=== PATIENT | female | born 1965 | race Caucasian/White ===

== ENCOUNTER 2017-02-23 22:00 | Emergency (ER) | payer SELFPAY ==
[~2017-02-23] VITALS: Ht 154.9 cm; Wt 68.2 kg
[~2017-02-23 22:00] MED LIST: NO HOME MEDICATIONS; NORCO 325 MG-51 TAB PO; PEN-VEE K500 MG PO
[2017-02-23 22:16] VITALS: BP 143/61; TEMP 99.1
[2017-02-24] MEDS ORDERED: NAPROSYN500 MG PO (00:09)
[2017-02-24 00:29] VITALS: PULSE 80
== END 2017-02-24 00:32 | disposition home or self-care (01) ==
LOC: COL.ER 22:00
DX: G56.03 Carpal tunnel syndrome, bilateral upper limbs (principal); F17.210 Nicotine dependence, cigarettes, uncomplicated

== ENCOUNTER 2017-03-07 13:58 | Emergency (ER) | payer SELFPAY ==
[~2017-03-07] VITALS: Ht 154.9 cm; Wt 72.7 kg
[~2017-03-07 13:58] MED LIST changes: +NAPROSYN500 MG PO
[2017-03-07 14:01] VITALS: TEMP 98.2
[2017-03-07] MEDS ORDERED: ILOTYCIN5 MG/GM OP (15:30)
[2017-03-07 15:40] VITALS: BP 129/55; PULSE 71
== END 2017-03-07 15:40 | disposition home or self-care (01) ==
LOC: COL.ER 13:58
DX: H10.89 Other conjunctivitis (principal); B99.9 Unspecified infectious disease; F17.210 Nicotine dependence, cigarettes, uncomplicated

== ENCOUNTER 2017-09-27 14:35 | Emergency (ER) | payer SELFPAY ==
[~2017-09-27] VITALS: Ht 154.9 cm; Wt 79.1 kg
[~2017-09-27 14:35] MED LIST changes: +ILOTYCIN5 MG/GM OP
[2017-09-27 14:37] VITALS: BP 136/63; PULSE 95; TEMP 99.4
[2017-09-27] MEDS ORDERED: PEN-VEE K500 MG PO (14:58)
[2017-09-27] MEDS ORDERED: NORCO 325 MG-51 TAB PO (14:58)
== END 2017-09-27 15:07 | disposition home or self-care (01) ==
LOC: COL.ER 14:35
DX: K08.89 Other specified disorders of teeth and supporting structures (principal); F17.210 Nicotine dependence, cigarettes, uncomplicated

== ENCOUNTER 2018-06-08 10:35 | Emergency (ER) | payer SELFPAY ==
[~2018-06-08] VITALS: Ht 154.9 cm; Wt 68.2 kg
[2018-06-08 10:46] VITALS: BP 115/61; TEMP 97
[2018-06-08 12:59] VITALS: PULSE 80
== END 2018-06-08 13:04 | disposition home or self-care (01) ==
LOC: COL.ER 10:35
DX: J03.00 Acute streptococcal tonsillitis, unspecified (principal); J06.9 Acute upper respiratory infection, unspecified; F17.210 Nicotine dependence, cigarettes, uncomplicated
CPT/HCPCS: J0561

== ENCOUNTER 2019-02-13 13:04 | Emergency (ER) | payer SELFPAY ==
[~2019-02-13] VITALS: Ht 154.9 cm; Wt 72.7 kg
[2019-02-13 13:18] VITALS: BP 134/71; TEMP 98.2
[2019-02-13 15:59] VITALS: PULSE 77
== END 2019-02-13 15:59 | disposition home or self-care (01) ==
LOC: COL.ER 13:04
DX: H61.23 Impacted cerumen, bilateral (principal); F17.210 Nicotine dependence, cigarettes, uncomplicated